=== PATIENT | male | born 1985 | race African-American/Black ===

== ENCOUNTER 2017-06-06 09:57 | Outpatient (CLI) | payer BC ==
--- NOTE | 2017-06-06 12:23 | RAD ---
ONE VIEW ABDOMEN: HISTORY: Left lower quadrant pain for a few weeks. COMPARISON: None. FINDINGS: Nonspecific bowel gas pattern. No of the abdomen or pelvis. No pneumoperitoneum in the supine projection. IMPRESSION: Nonspecific bowel gas pattern. POS: [facility]
== END 2017-06-06 09:58 | disposition home or self-care (01) ==
LOC: SCSRAD 09:57
PROVIDERS: ATTEND Family Medicine
DX: E79.0 Hyperuricemia without signs of inflammatory arthritis and tophaceous disease (principal)
CPT/HCPCS: 74000